=== PATIENT | male | born 1955 | race Caucasian/White ===

== ENCOUNTER 2017-09-22 18:33 | Emergency (ER) | payer BC ==
[2017-09-22] MEDS ORDERED: Nitroglycerin 0.4 MG Tab.SL SL PRN (18:49)
[2017-09-22] MEDS ORDERED: Aspirin 81 MG Tab.Chew PO ONE (18:49)
[2017-09-22] MEDS ORDERED: Sodium Chloride 0.9% 10 ML Syringe FLUSH PRN (18:51)
--- NOTE | 2017-09-22 20:04 | EDM.PDOC ---
ED HPI GENERAL MEDICAL PROBLEM - General Chief Complaint: Chest Pain Stated Complaint: chest pain Time Seen by Provider: 09/22/17 19:09 Source of Information: Reports: Patient, Family () History Limitations: Reports: No Limitations - History of Present Illness INITIAL COMMENTS - FREE TEXT/NARRATIVE: The patient states that he developed central chest (the patient demonstrates Marte sign) achiness, an "extreme discomfort" around 17:30 this evening, after coming in from snow throwing. The sensation did not radiate. It waxed and waned. It was not modifiable. He did not have any associated symptoms, such as dyspnea, nausea, diaphoresis, or sense of impending doom, although he did feel somewhat anxious about it, as the patient is status post an PR. The patient takes a baby aspirin every morning, and also took an additional baby aspirin around 18:00. The sensation resolved on its own around 19:05, after the patient had arrived to the ED. The patient states that he is status post an PR on 03/16/2015. At that time, he presented with more severe chest discomfort, felt in his lower ribs, along with diaphoresis, dyspnea, and generalized weakness. He underwent a single stent (to the LAD?) at that time. He subsequently failed a Cardiolite stress test on 2015, resulting in a second coronary stent (to OM1?). The patient states that he was started on Plavix after his first stent, and continued with his second. He is still on Plavix. He states that he had previously been on metoprolol, but that it was discontinued this past summer, for reasons unknown. He states that since discontinuation, his blood pressure has been elevated. Here in the ED, the patient's initial blood pressure was found to be 168/96 with a heart rate of 94. The patient does not have a PCP. His Quality Eng is Dr. Gardiner. Chest Pain Score (Numeric/FACES): 4 - Related Data Allergies Allergy/AdvReac Type Severity Reaction Status Date / Time amoxicillin Allergy Rash Verified 09/22/17 18:43 Home Meds: Home Meds Aspirin [[place] Aspirin] 81 mg PO DAILY 03/29/15 [History] atorvaSTATin [Lipitor] 20 mg PO DAILY 03/29/15 [History] Metoprolol Tartrate 1 tab PO Q12H #30 tablet 09/22/17 [Rx] Past Medical History HEENT History: Reports: Impaired Vision Cardiovascular History: Reports: CAD, High Cholesterol, Hypertension, PR Gastrointestinal History: Reports: GERD - Past Surgical History HEENT Surgical History: Reports: Oral Surgery ([place] teeth extraction) Cardiovascular Surgical History: Reports: Coronary Artery Stent (x 2) Musculoskeletal Surgical History: Reports: Other (See Below) (Left knee, open) Social & Family History - Tobacco Use Smoking Status *Q: Former Smoker Years of Tobacco use: 5 Packs/Tins Daily: 2 Month Tobacco Last Used: Quit 1977 - Caffeine Use Caffeine Use: Reports: Coffee - Alcohol Use Alcohol Use History: Yes Alcohol Use Frequency: Socially - Recreational Drug Use Recreational Drug Use: No - Living Situation & Occupation Living situation: Reports: , with Spouse Occupation: Employed ([employer]) ED ROS GENERAL - Review of Systems Review Of Systems: See Below Constitutional: Reports: No Symptoms HEENT: Reports: No Symptoms Respiratory: Reports: No Symptoms Cardiovascular: Reports: No Symptoms Endocrine: Reports: No Symptoms GI/Abdominal: Reports: No Symptoms : Reports: No Symptoms Musculoskeletal: Reports: No Symptoms Skin: Reports: No Symptoms Neurological: Reports: No Symptoms Psychiatric: Reports: No Symptoms Hematologic/Lymphatic: Reports: No Symptoms Immunologic: Reports: No Symptoms ED EXAM, GENERAL - Physical Exam Exam: See Below Exam Limited By: No Limitations General Appearance: Alert, WD/WN, No Apparent Distress Eye Exam: Bilateral Eye: Normal Inspection Ears: Normal External Exam, Hearing Grossly Normal Nose: Normal Inspection, No Blood Throat/Mouth: Normal Inspection, Normal Lips, Normal Voice, No Airway Compromise Head: Atraumatic, Normocephalic Neck: Normal Inspection, Full Range of Motion Respiratory/Chest: No Respiratory Distress, Lungs Clear, Normal Breath Sounds, No Accessory Muscle Use Cardiovascular: Normal Peripheral Pulses, Regular Rate, Rhythm, No Edema, No Gallop, No JVD, No Murmur, No Rub Peripheral Pulses: 4+: Radial (L), Radial (R) GI/Abdominal: Normal Bowel Sounds, Soft, Non-Tender, No Organomegaly, No Distention, No Abnormal Bruit, No Mass (Male) Exam: Deferred Rectal (Males) Exam: Deferred Back Exam: Normal Inspection, Full Range of Motion, NT Extremities: Normal Inspection, Normal Range of Motion, No Pedal Edema, Normal Capillary Refill Neurological: Alert, Oriented, Normal Cognition, No Motor/Sensory Deficits Psychiatric: Normal Affect Skin Exam: Warm, Dry, Intact, Normal Color, No Rash EKG INTERPRETATION EKG Date: 09/22/17 Time: 18:50 Rhythm: NSR Rate (Beats/Min): 78 [place]: Normal P-Wave: Present QRS: Normal ST-T: Normal QT: Normal Comparison: Change From Previous EKG (ECGs 03/15/2015 with anterolateral PR) EKG Interpretation Comments: LVH Course - Vital Signs Last Recorded V/S: Last Vital Signs Temp 36.3 C 09/22/17 18:41 Pulse 84 09/22/17 21:18 Resp 18 09/22/17 18:41 BP 135/89 09/22/17 21:18 Pulse Ox 99 09/22/17 18:41 - Orders/Labs/Meds Orders: Active Orders 24 hr Category Date Time Status EKG 12 Lead [EKG Documentation Completion] [RC] STAT Care 09/22/17 18:48 Active EKG Documentation Completion [RC] ASDIRECTED Care 09/22/17 21:45 Active Oxygen Therapy [RC] ASDIRECTED Care 09/22/17 18:51 Active CXR [Chest 1V Frontal] [CR] Stat Exams 09/22/17 18:49 Taken Nitroglycerin [Nitrostat] Med 09/22/17 18:49 Active 0.4 mg SL Q5M PRN Sodium Chloride 0.9% [Saline Flush] Med 09/22/17 18:51 Active 10 ml FLUSH ASDIRECTED PRN Saline Lock Insert [OM.PC] Routine Oth 09/22/17 18:51 Ordered Medication Orders Nitroglycerin (Nitrostat) 0.4 mg SL Q5M PRN PRN Reason: Chest Pain Sodium Chloride (Saline Flush) 10 ml FLUSH ASDIRECTED PRN PRN Reason: Keep Vein Open Last Admin: 09/22/17 19:56 Dose: 10 ml Labs: Laboratory Tests 09/22/17 09/22/17 09/22/17 Range/Units 19:05 19:05 19:05 WBC 6.53 (4.23-9.07) K/mm3 RBC 4.95 (4.63-6.08) M/mm3 Hgb 15.5 (13.7-17.5) gm/L Hct 45.1 (40.1-51.0) % MCV 91.1 (79.0-92.2) fl MCH 31.3 (25.7-32.2) pg MCHC 34.4 (32.2-35.5) g/dl RDW Std Deviation 40.0 (35.1-43.9) fL Plt Count 228 (163-337) K/mm3 MPV 10.1 (9.4-12.3) fl Neut % (Auto) 57.6 (34.0-67.9) % Lymph % (Auto) 27.9 (21.8-53.1) % [place] % (Auto) 11.2 (5.3-12.2) % Eos % (Auto) 2.6 (0.8-7.0) Baso % (Auto) 0.5 (0.1-1.2) % Neut # (Auto) 3.77 (1.78-5.38) K/mm3 Lymph # (Auto) 1.82 (1.32-3.57) K/mm3 [place] # (Auto) 0.73 (0.30-0.82) K/mm3 Eos # (Auto) 0.17 (0.04-0.54) K/mm3 Baso # (Auto) 0.03 (0.01-0.08) K/mm3 PT 10.4 (8.0-13.0) SECONDS INR 0.96 APTT 27 (22-36) SECONDS Sodium (136-145) mEq/L Potassium (3.5-5.1) mEq/L Chloride (98-107) mEq/L Carbon Dioxide (21-32) mEq/L Anion Gap (5-15) BUN (7-18) mg/dL Creatinine (0.7-1.3) mg/dL Est Cr Clr Drug Dosing mL/min Estimated GFR (MDRD) (>60) mL/min BUN/Creatinine Ratio (14-18) Glucose (80-115) mg/dL Calcium (8.5-10.1) mg/dL Total Bilirubin (0.2-1.0) mg/dL AST (15-37) U/L ALT (16-63) U/L Alkaline Phosphatase (46-116) U/L CK-MB (CK-2) 2.3 (0-3.6) ng/ml Troponin I < 0.017 (0.00-0.056) ng/mL Total Protein (6.4-8.2) g/dl Albumin (3.4-5.0) g/dl Globulin gm/dL Albumin/Globulin Ratio (1-2) 09/22/17 09/22/17 Range/Units 19:05 21:47 WBC (4.23-9.07) K/mm3 RBC (4.63-6.08) M/mm3 Hgb (13.7-17.5) gm/L Hct (40.1-51.0) % MCV (79.0-92.2) fl MCH (25.7-32.2) pg MCHC (32.2-35.5) g/dl RDW Std Deviation (35.1-43.9) fL Plt Count (163-337) K/mm3 MPV (9.4-12.3) fl Neut % (Auto) (34.0-67.9) % Lymph % (Auto) (21.8-53.1) % [place] % (Auto) (5.3-12.2) % Eos % (Auto) (0.8-7.0) Baso % (Auto) (0.1-1.2) % Neut # (Auto) (1.78-5.38) K/mm3 Lymph # (Auto) (1.32-3.57) K/mm3 [place] # (Auto) (0.30-0.82) K/mm3 Eos # (Auto) (0.04-0.54) K/mm3 Baso # (Auto) (0.01-0.08) K/mm3 PT (8.0-13.0) SECONDS INR APTT (22-36) SECONDS Sodium 140 (136-145) mEq/L Potassium 4.6 (3.5-5.1) mEq/L Chloride 105 (98-107) mEq/L Carbon Dioxide 28 (21-32) mEq/L Anion Gap 11.6 (5-15) BUN 23 H (7-18) mg/dL Creatinine 1.0 (0.7-1.3) mg/dL Est Cr Clr Drug Dosing 73.71 mL/min Estimated GFR (MDRD) > 60 (>60) mL/min BUN/Creatinine Ratio 23.0 H (14-18) Glucose 97 (80-115) mg/dL Calcium 9.7 (8.5-10.1) mg/dL Total Bilirubin 0.5 (0.2-1.0) mg/dL AST 25 (15-37) U/L ALT 36 (16-63) U/L Alkaline Phosphatase 55 (46-116) U/L CK-MB (CK-2) (0-3.6) ng/ml Troponin I < 0.017 (0.00-0.056) ng/mL Total Protein 7.9 (6.4-8.2) g/dl Albumin 4.3 (3.4-5.0) g/dl Globulin 3.6 gm/dL Albumin/Globulin Ratio 1.2 (1-2) Meds: Medications Generic Name Dose Route Start Last Admin Trade Name Freq PRN Reason Stop Dose Admin Nitroglycerin 0.4 mg 09/22/17 18:49 Nitrostat SL Q5M PRN Chest Pain Sodium Chloride 10 ml 09/22/17 18:51 09/22/17 19:56 Saline Flush FLUSH 10 ml ASDIRECTED PRN Administration Keep Vein Open Discontinued Medications Generic Name Dose Route Start Last Admin Trade Name Freq PRN Reason Stop Dose Admin Aspirin 324 mg 09/22/17 18:49 09/22/17 19:55 Aspirin PO 09/22/17 18:50 162 mg ONETIME ONE Administration Metoprolol Tartrate 50 mg 09/22/17 21:05 09/22/17 21:18 Lopressor PO 09/22/17 21:06 50 mg ONETIME ONE Administration - Re-Assessments/Exams Free Text/Narrative Re-Assessment/Exam: 09/22/17 19:12 Portable chest radiograph appears to be grossly normal. Cardiac silhouette is within normal limits. No pulmonary vascular congestion. No pleural effusions. No focal infiltrate. No pneumothorax. Formal read per the Radiologist pending. 09/22/17 21:13 The patient's initial ECG and troponin were negative. We are awaiting a second troponin and ECG, to be drawn at 21:45, 4 hours 15 minutes following the onset of his symptoms. In the meantime, I have ordered metoprolol 50 mg, as the patient has known coronary artery disease, with a current presentation that is highly concerning for angina, even though I anticipate that he has not suffered an acute PR. Nevertheless, the patient would benefit from the addition of a beta samina. 09/22/17 22:03 Repeat ECG at 21:49 demonstrates a normal sinus rhythm at 81 bpm. There are no acute ST or T-wave changes. No Q-waves are seen. No intraventricular conduction delays. No LAD. No LVH. This is a normal ECG. 09/22/17 22:31 Test results discussed with the patient and his . As above, I suspect that the patient's chest pain was anginal in nature, although his cardiac enzymes were negative, and his ECGs did not show any ischemic changes. I will discharge the patient home with the recommendation that he contact his Quality Eng, Dr. Gardiner, tomorrow morning to arrange for a stress test. I have also instructed the patient to take it easy, and will write a note for work. The patient has been instructed that should his chest discomfort return, that he is to return to the ED right away. Also, as above, I have started the patient on metoprolol, and will e-prescribe metoprolol 25 mg BID. Departure - Departure Time of Disposition: 22:34 Disposition: Home, Self-Care 01 Condition: Good Clinical Impression: Angina pectoris Referrals: PCP,None [Primary Care Provider] - Luca Vanegas MD [Ordering Only Provider] - Jay Aquino [Physician] - Forms: ED Department Discharge, ED Return to Work/School Form Additional Instructions: You were seen in the Emergency Room for chest discomfort. Workup in the ER included bloodwork, that included 2 cardiac enzymes, 2 ECGs, and a chest x-ray. Your entire workup was normal. You have not suffered a heart attack, however, your chest discomfort was MOST LIKELY due to your heart. You have been started on the beta samina metoprolol. A prescription for this has been sent to [email or web address], [facility]. [facility]. Take one tablet every 12 hours, as prescribed. Contact the office of your Quality Eng, Dr. Gardiner, first thing tomorrow morning, to arrange for a cardiac stress test. When you follow-up with Dr. Gardiner, make sure to tell him that you are taking metoprolol. You may follow-up with Dr. Aquino as a primary care physician. It is important that you not heavily exert yourself. A note for work has been provided. If your chest discomfort returns, return to the ER right away. - My Orders Last 24 Hours: My Active Orders 09/22/17 18:48 EKG 12 Lead [EKG Documentation Completion] [RC] STAT 09/22/17 18:49 CXR [Chest 1V Frontal] [CR] Stat Nitroglycerin [Nitrostat] 0.4 mg SL Q5M PRN 09/22/17 18:51 Oxygen Therapy [RC] ASDIRECTED Sodium Chloride 0.9% [Saline Flush] 10 ml FLUSH ASDIRECTED PRN Saline Lock Insert [OM.PC] Routine 09/22/17 21:45 EKG Documentation Completion [RC] ASDIRECTED - Assessment/Plan Last 24 Hours: My Active Orders 09/22/17 18:48 EKG 12 Lead [EKG Documentation Completion] [RC] STAT 09/22/17 18:49 CXR [Chest 1V Frontal] [CR] Stat Nitroglycerin [Nitrostat] 0.4 mg SL Q5M PRN 09/22/17 18:51 Oxygen Therapy [RC] ASDIRECTED Sodium Chloride 0.9% [Saline Flush] 10 ml FLUSH ASDIRECTED PRN Saline Lock Insert [OM.PC] Routine 09/22/17 21:45 EKG Documentation Completion [RC] ASDIRECTED
[2017-09-22] MEDS ORDERED: Metoprolol Tartrate 50 MG Tab PO ONE (21:05)
[2017-09-22 21:20] VITALS: BP 135/89
--- NOTE | 2017-09-23 07:31 | CR ---
Chest: Portable view of the chest was obtained. Comparison: Prior chest x-ray of 03/15/15. Heart size is within normal limits for portable technique. Lungs are clear. Slight scoliosis is noted. Bony structures are grossly intact. Impression: 1. Incidental findings. Nothing acute is seen on portable chest x-ray. Diagnostic code #2
== END 2017-09-22 22:55 | disposition home or self-care (01) ==
LOC: JD.ED 18:33
DX: I20.9 Angina pectoris, unspecified (principal); E78.00 Pure hypercholesterolemia, unspecified; Z88.1 Allergy status to other antibiotic agents; Z79.899 Other long term (current) drug therapy; Z87.891 Personal history of nicotine dependence
CPT/HCPCS: 36415; 71045; 80053; 82553; 84484; 85025; 85610; 85730; 93005; 99285; A9270; J7050; 93010; 99283-25